=== PATIENT | female | born 1955 | race Caucasian/White ===

== ENCOUNTER → 2017-09-25 | Outpatient (CLI) | payer OTHER | LOC: RAD 03:39 | DX: Z12.31 Encounter for screening mammogram for malignant neoplasm of breast (principal) ==

== ENCOUNTER → 2019-04-30 | Outpatient (CLI) | payer OTHER | LOC: ULTRA 02:55 | DX: C50.912 Malignant neoplasm of unspecified site of left female breast (principal); Z85.3 Personal history of malignant neoplasm of breast; Z90.12 Acquired absence of left breast and nipple ==

== ENCOUNTER → 2021-01-04 | Outpatient (CLI) | payer OTHER | LOC: BC 12-31 09:57 | DX: Z12.31 Encounter for screening mammogram for malignant neoplasm of breast (principal) ==